=== PATIENT | male | born 1970 | race African-American/Black ===

== ENCOUNTER 2016-10-17 10:58 | Inpatient (IN) | payer OTHER ==
[2016-10-17 14:47] VITALS: BMI 29.0
--- NOTE | 2016-10-17 17:23 | HP ---
Admission [facility] Chief Complaint: I wanted to come in for rehab. Allergies/Adverse Reactions: Allergies Allergy/AdvReac Type Severity Reaction Status Date / Time penicillin G Allergy Severe Rash Verified 10/17/16 17:06 sulfamethoxazole Allergy Rash Verified 10/17/16 17:06 [From Bactrim] trimethoprim [From Bactrim] Allergy Rash Verified 10/17/16 17:06 DAPSONE Allergy Severe Rash Uncoded 10/17/16 17:06 History of Present Illness: pt is a 46yr old male with a history of klonipin dependence however, pt toxicology is negative. pt was made aware that he will not be receiving any benzodiazapine while on the unit and pt is in agreement. Exam Limitations: No Limitations - Ebola screening Have you traveled outside of the country in the last 21 days: No Have you had contact with anyone from an Ebola affected area: No Have you been sick,other than usual withdrawal symptoms: No Do you have a fever: No - Review of Systems Constitutional: No Symptoms Reported EENT: reports: No Symptoms Reported Respiratory: reports: No Symptoms reported Cardiac: reports: No Symptoms Reported GI: reports: Constipated : reports: No Symptoms Reported Musculoskeletal: reports: Back Pain Integumentary: reports: [place] Neuro: reports: No Symptoms reported Endocrine: reports: No Symptoms Reported Hematology: reports: No Symptoms Reported Psychiatric: reports: Judgement Intact, Mood/Affect Appropiate, Orientated x3, Anxious Other Systems: Reviewed and Negative Patient History - Patient Medical History Hx Anemia: No Hx Asthma: Yes Hx Chronic Obstructive Pulmonary Disease (COPD): No Hx Cancer: No Hx Cardiac Disorders: No Hx Congestive Heart Failure: No Hx Hypertension: No Hx Hypercholesterolemia: No Hx Pacemaker: No HX Cerebrovascular Accident: No Hx Seizures: No Hx Dementia: No Hx Diabetes: No Hx Gastrointestinal Disorders: No Hx Liver Disease: No Hx Genitourinary Disorders: No Hx Sexually Transmitted Disorders: No Hx Renal Disease (ESRD): No Hx Thyroid Disease: No Hx Human Immunodeficiency Virus (HIV): Yes (diagnosed 1998 not currently taking any medication) Hx Hepatitis C: No (denies) Hx Depression: No Hx Suicide Attempt: No (denies) Hx Bipolar Disorder: No Hx Schizophrenia: No - Patient Surgical History Past Surgical History: No - PPD History Previous Implant?: Yes Documented Results: Negative w/o proof PPD to be Administered?: Yes - Reproductive History Patient is a Female of Child Bearing Age (11 -55 yrs old): No - Smoking Cessation Smoking history: Current every day smoker Have you smoked in the past 12 months: Yes Aproximately how many cigarettes per day: 10 Hx Chewing Tobacco Use: No Initiated information on smoking cessation: Yes 'Breaking Loose' booklet given: 10/17/16 - Substance & Tx. History Hx Alcohol Use: No Hx Substance Use: No Hx Substance Use Treatment: No Family Disease History - Family Disease History Family History: Denies Admission Physical Exam [facility] - Vital Signs Vital Signs: Vital Signs - 24 hr 10/17/16 14:45 Temperature 98.6 F Pulse Rate 79 Respiratory 20 Rate Blood Pressure 137/74 - Physical General Appearance: Yes: Appropriately Dressed, Moderate Distress HEENTM: Yes: Hearing grossly Normal Respiratory: Yes: Lungs Clear, Normal Breath Sounds, No Respiratory Distress Neck: Yes: No masses,lesions,Nodules Breast: Yes: Within Normal Limits Cardiology: Yes: Regular Rhythm, Regular Rate, S1, S2 Abdominal: Yes: Within Normal Limits, Normal Bowel Sounds Genitourinary: Yes: Within Normal Limits Back: Yes: Normal Inspection Musculoskeletal: Yes: full range of Motion Extremities: Yes: Normal Capillary Refill Neurological: Yes: Fully Oriented, Alert, Normal Response Integumentary: Yes: Normal Color Lymphatic: Yes: Within Normal Limits - Diagnostic (1) Klonopin use disorder, mild, abuse Current Visit: No Status: Chronic (2) Methadone maintenance therapy patient Current Visit: Yes Status: Chronic (3) Asthma with COPD Current Visit: Yes Status: Chronic (4) HIV disease Current Visit: Yes Status: Chronic Comment: not taking any medication (5) Nicotine dependence Current Visit: Yes Status: Chronic Qualifiers: Nicotine product type: cigarettes Substance use status: uncomplicated Qualified Code(s): F17.210 - Nicotine dependence, cigarettes, uncomplicated Cleared for Admission [facility] - Detox or Rehab [facility] Level of Care: Medically Managed Claeared for Rehab Admission: Yes [facility] Breath Alcohol Content Breath Alcohol Content: 0 Urine Drug Screen - Results Drug Screen Negative: No Urine Drug Screen Results: MTD-Methadone
[2016-10-17] MEDS ORDERED: MAGNESIUM HYDROX 2400MG/30ML ORAL SUSPENSION 30 ML CUP PO PRN (17:36)
[2016-10-17] MEDS ORDERED: MENTHOL/PHENOL 1 EACH UD MM PRN (17:36)
[2016-10-17] MEDS ORDERED: P-EPHED 60MG/TRIPROLIDI 2.5MG TABLET PO PRN (17:36)
[2016-10-17] MEDS ORDERED: ACETAMINOPHEN 325 MG TABLET (FP) PO PRN (17:36)
[2016-10-17] MEDS ORDERED: IBUPROFEN 400 MG TABLET (FP) PO PRN (17:36)
[2016-10-17] MEDS ORDERED: LOPERAMIDE HCL 2 MG CAPSULE PO PRN (17:36)
[2016-10-17] MEDS ORDERED: guaiFENesin/D-METHORPHAN HB 10 ML UNIT-DOSE CUPS PO PRN (17:36)
[2016-10-17] MEDS ORDERED: MAG HYDROX/AL HYDROX/SIMETH 30 ML UNIT-DOSE CUP PO PRN (17:36)
[2016-10-17] MEDS ORDERED: MAGNESIUM CITRATE 300 ML BOTTLE PO PRN (17:36)
[2016-10-17] MEDS ORDERED: hydrOXYzine PAMOATE 50 MG CAPSULE (FP) PO PRN (17:36)
[2016-10-17] MEDS ORDERED: ALBUTEROL SO4 6.7 GM HFA INHALER IH PRN (17:37)
[2016-10-17] MEDS: LIDOCAINE PATCH REMOVAL MC SCH (21:38)
[2016-10-17] MEDS: THIAMINE HCL 100 MG TABLET (FP) PO SCH (22:30)
[2016-10-17] MEDS: BUDESONIDE/FORMETEROL FUMARATE 80/4.5 mcg INHALER IH SCH (22:30)
[2016-10-18] MEDS ORDERED: METHADONE HCL 40 MG DISPERSABLE TABLET PO SCH (07:00)
[2016-10-18] MEDS ORDERED: METHADONE HCL 40 MG DISPERSABLE TABLET ONE (07:12)
[2016-10-18] MEDS ORDERED: METHADONE HCL 10 MG TABLET ONE (07:12)
[2016-10-18] MEDS: METHADONE 80 MG, METHADONE 10 MG PO SCH (07:16)
[2016-10-18 10:35] LABS: MCH 31.6 pg (25.7-33.7); MCHC 34.2 g/dl (32.0-35.9); MEAN CELL VOLUME 92.3 fl (80-96); MEAN PLT VOLUME 9.1 fl (7.5-11.1); PLATELET COUNT 242 K/MM3 (134-434); RDW 15.3 % (11.9-15.9); WHITE BLOOD COUNT 3.9 K/mm3 (4.0-10.0)
[2016-10-18] MEDS: PRENATAL VITAMINS W/ FOLIC ACID TABLET (FP) PO SCH (10:54)
[2016-10-18] MEDS: CHOLECALCIFEROL PO SCH (10:54)
[2016-10-18] MEDS: [UNRECOGNIZED DRUG - OTHER] PO SCH (10:54)
[2016-10-18] MEDS: NICOTINE 21 MG/24 HOURS TOPICAL PATCH TD SCH (10:55)
[2016-10-18] MEDS: LIDOCAINE 5% TOPICAL PATCH TP SCH (10:56)
[2016-10-18] MEDS: NICOTINE POLACRILEX 4 MG GUM BC PRN (10:58)
[2016-10-18] MEDS: BUDESONIDE/FORMETEROL FUMARATE 80/4.5 mcg INHALER IH SCH ×2 (10:58→21:12)
[2016-10-18 11:15] LABS: ALBUMIN 3.7 g/dl (3.4-5.0); ALK PHOS 122 U/L (45-117); ANION GAP 8 (8-16); BILIRUBIN,TOTAL 0.4 mg/dL (0.2-1.0); CALCIUM 8.9 mg/dL (8.5-10.1); CO2 27 mmol/L (21-32); COCKROFT - GAULT 105.46; GLUCOSE,RANDOM 88 mg/dL (74-106); SGOT/AST 21 U/L (15-37); SGPT/ALT 25 U/L (12-78); TOT PROT 7.4 g/dl (6.4-8.2)
[2016-10-18] MEDS: THIAMINE HCL 100 MG TABLET (FP) PO SCH (21:11)
[2016-10-18] MEDS: diphenhydrAMINE HCL 50 MG CAPSULE PO PRN (21:11)
[2016-10-18] MEDS: LIDOCAINE PATCH REMOVAL MC SCH (21:11)
[2016-10-19] MEDS ORDERED: METHADONE HCL 10 MG TABLET ONE (03:58)
[2016-10-19] MEDS ORDERED: METHADONE HCL 40 MG DISPERSABLE TABLET ONE (03:59)
[2016-10-19] MEDS: METHADONE 80 MG, METHADONE 10 MG PO SCH (05:57)
[2016-10-19] MEDS: NICOTINE 21 MG/24 HOURS TOPICAL PATCH TD SCH (09:29)
[2016-10-19] MEDS: PRENATAL VITAMINS W/ FOLIC ACID TABLET (FP) PO SCH (09:29)
[2016-10-19] MEDS: CHOLECALCIFEROL PO SCH (09:29)
[2016-10-19] MEDS: [UNRECOGNIZED DRUG - OTHER] PO SCH (09:29)
[2016-10-19] MEDS: LIDOCAINE 5% TOPICAL PATCH TP SCH (09:29)
[2016-10-19] MEDS: NICOTINE POLACRILEX 4 MG GUM BC PRN (09:30)
[2016-10-19] MEDS: BUDESONIDE/FORMETEROL FUMARATE 80/4.5 mcg INHALER IH SCH ×2 (10:09→21:44)
[2016-10-19] MEDS: LIDOCAINE PATCH REMOVAL MC SCH (21:43)
[2016-10-19] MEDS: diphenhydrAMINE HCL 50 MG CAPSULE PO PRN (21:43)
[2016-10-19] MEDS: THIAMINE HCL 100 MG TABLET (FP) PO SCH (21:43)
[2016-10-20] MEDS ORDERED: METHADONE HCL 10 MG TABLET ONE (03:58)
[2016-10-20] MEDS ORDERED: METHADONE HCL 40 MG DISPERSABLE TABLET ONE (03:59)
[2016-10-20] MEDS: METHADONE 80 MG, METHADONE 10 MG PO SCH (05:56)
[2016-10-20] MEDS ORDERED: PT OWN MED DRAWER 7, Y5N ONE (08:45)
[2016-10-20] MEDS: [UNRECOGNIZED DRUG - OTHER] PO SCH (10:07)
[2016-10-20] MEDS: PRENATAL VITAMINS W/ FOLIC ACID TABLET (FP) PO SCH (10:07)
[2016-10-20] MEDS: CHOLECALCIFEROL PO SCH (10:07)
[2016-10-20] MEDS: NICOTINE 21 MG/24 HOURS TOPICAL PATCH TD SCH (10:08)
[2016-10-20] MEDS: LIDOCAINE 5% TOPICAL PATCH TP SCH (10:08)
[2016-10-20] MEDS: BUDESONIDE/FORMETEROL FUMARATE 80/4.5 mcg INHALER IH SCH ×2 (10:09→21:20)
--- NOTE | 2016-10-20 11:36 | EKG ---
Test Reason : Blood Pressure : / mmHG Vent. Rate : 058 BPM Atrial Rate : 058 BPM P-R Int : 160 ms QRS Dur : 070 ms QT Int : 422 ms P-R-T Axes : 067 053 051 degrees QTc Int : 414 ms SINUS BRADYCARDIA OTHERWISE NORMAL ECG NO PREVIOUS ECGS AVAILABLE Confirmed by KATYA WINTERS MD ([id number]) on 10/20/2016 11:36:15 AM Referred By: Parag Nolasco Confirmed By:KATYA WINTERS MD
--- NOTE | 2016-10-20 13:24 | HP ---
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 , unemployed, on SSI, living alone with psychiatric hospitalization history, sent by himself due to Benzodoiazepins and Nicotine abuse, Opioids dependency Medical History: Patient ambulayes with cane due to chronic Osteoporosos, reports HIV, COPD history Psychiatric History: Patient denies past psychiatric history, reportsa unclear psychiatric admission on about 10 years ago, reports no medications taking prior mto admission Physical/Sexual Abuse/Trauma History: Denies Vital Signs: Vital Signs - 24 hr 10/20/16 10/20/16 00:30 06:59 Temperature 98.5 F Pulse Rate 64 Respiratory 18 18 Rate Blood Pressure 127/76 Allergies/Adverse Reactions: Allergies Allergy/AdvReac Type Severity Reaction Status Date / Time penicillin G Allergy Severe Rash Verified 10/17/16 17:06 sulfamethoxazole Allergy Rash Verified 10/17/16 17:06 [From Bactrim] trimethoprim [From Bactrim] Allergy Rash Verified 10/17/16 17:06 DAPSONE Allergy Severe Rash Uncoded 10/17/16 17:06 Concur with the findings of this exam: Yes - Substance Abuse/Tx History Hx Alcohol Use: No Hx Substance Use: Yes (Cannabis, Nicotine, Benzodiazepins) Substance Use Type: Opiates Hx Substance Use Treatment: Yes - Admission Criteria Previous failed treatment: Yes Poor recovery environment: No Lacks judgement: No Mental Status Exam - Mental Status Exam Alert and Oriented to: Person Cognitive Function: Fair Patient Appearance: Well Groomed Mood: Sad Affect: Mood Congruent Patient Behavior: Cooperative Speech Pattern: Delayed Voice Loudness: Mildly Soft/Quiet Thought Process: Goal Oriented Thought Disorder: Being Controlled Hallucinations: Denies Suicidal Ideation: Denies Homicidal Ideation: Denies Sleep: Difficulty falling asleep Appetite: Weight loss Muscle strength/Tone: Clonus Gait/Station: Deferred Additional Comments: Observation Psychiatric Findings - Problem List ([place] 1, 2,3) (1) Asthma with COPD Current Visit: Yes Status: Chronic (2) Methadone maintenance therapy patient Current Visit: Yes Status: Chronic (3) Nicotine dependence Current Visit: Yes Status: Chronic Qualifiers: Nicotine product type: cigarettes Substance use status: uncomplicated Qualified Code(s): F17.210 - Nicotine dependence, cigarettes, uncomplicated (4) Klonopin use disorder, mild, abuse Current Visit: No Status: Chronic (5) Drug-induced mood disorder Current Visit: Yes Status: Suspected - Initial Treatment Plan Initial Treatment Plan: Observation
[2016-10-20] MEDS: THIAMINE HCL 100 MG TABLET (FP) PO SCH (21:19)
[2016-10-20] MEDS: diphenhydrAMINE HCL 50 MG CAPSULE PO PRN (21:19)
[2016-10-20] MEDS: LIDOCAINE PATCH REMOVAL MC SCH (21:20)
[2016-10-21] MEDS ORDERED: METHADONE HCL 40 MG DISPERSABLE TABLET ONE (04:30)
[2016-10-21] MEDS ORDERED: METHADONE HCL 10 MG TABLET ONE (04:30)
[2016-10-21] MEDS: METHADONE 80 MG, METHADONE 10 MG PO SCH (06:05)
[2016-10-21] MEDS ORDERED: PT OWN MED DRAWER 7, Y5N ONE ×2 (08:50→21:34)
[2016-10-21] MEDS: PRENATAL VITAMINS W/ FOLIC ACID TABLET (FP) PO SCH (09:38)
[2016-10-21] MEDS: LIDOCAINE 5% TOPICAL PATCH TP SCH (09:39)
[2016-10-21] MEDS: NICOTINE 21 MG/24 HOURS TOPICAL PATCH TD SCH (09:40)
[2016-10-21] MEDS: [UNRECOGNIZED DRUG - OTHER] PO SCH (09:40)
[2016-10-21] MEDS: CHOLECALCIFEROL PO SCH (09:40)
[2016-10-21] MEDS: BUDESONIDE/FORMETEROL FUMARATE 80/4.5 mcg INHALER IH SCH ×2 (09:41→21:34)
[2016-10-21 18:40] LABS: URINE APPEARANCE CLEAR; URINE BILIRUBIN NEGATIVE (NEGATIVE); URINE BLOOD NEGATIVE (NEGATIVE); URINE COLOR YELLOW; URINE GLUCOSE (UA) NEGATIVE (NEGATIVE); URINE KETONE NEGATIVE (NEGATIVE); URINE LEUK ESTERASE NEGATIVE (NEGATIVE); URINE NITRITE NEGATIVE (NEGATIVE); URINE PROTEIN 1+ (NEGATIVE); URINE UROBILINOGEN NEGATIVE E.U./dl (0.2-1.0)
[2016-10-21 19:28] LABS: URINE MUCUS RARE; URINE RBC <1 /hpf (0-3); URINE WBC <1 /hpf (3-5)
[2016-10-21] MEDS: diphenhydrAMINE HCL 50 MG CAPSULE PO PRN (21:34)
[2016-10-21] MEDS: THIAMINE HCL 100 MG TABLET (FP) PO SCH (21:34)
[2016-10-21] MEDS: LIDOCAINE PATCH REMOVAL MC SCH (21:35)
[2016-10-22] MEDS ORDERED: METHADONE HCL 10 MG TABLET ONE (04:17)
[2016-10-22] MEDS ORDERED: METHADONE HCL 40 MG DISPERSABLE TABLET ONE (04:17)
[2016-10-22] MEDS: METHADONE 80 MG, METHADONE 10 MG PO SCH (06:02)
[2016-10-22] MEDS ORDERED: PT OWN MED DRAWER 7, Y5N ONE (09:16)
[2016-10-22] MEDS: NICOTINE 21 MG/24 HOURS TOPICAL PATCH TD SCH (10:09)
[2016-10-22] MEDS: PRENATAL VITAMINS W/ FOLIC ACID TABLET (FP) PO SCH (10:09)
[2016-10-22] MEDS: [UNRECOGNIZED DRUG - OTHER] PO SCH (10:10)
[2016-10-22] MEDS: CHOLECALCIFEROL PO SCH (10:10)
[2016-10-22] MEDS: LIDOCAINE 5% TOPICAL PATCH TP SCH (10:10)
[2016-10-22] MEDS: BUDESONIDE/FORMETEROL FUMARATE 80/4.5 mcg INHALER IH SCH ×2 (10:12→21:36)
[2016-10-22] MEDS: LIDOCAINE PATCH REMOVAL MC SCH (21:35)
[2016-10-22] MEDS: diphenhydrAMINE HCL 50 MG CAPSULE PO PRN (21:35)
[2016-10-22] MEDS: THIAMINE HCL 100 MG TABLET (FP) PO SCH (21:35)
[2016-10-23] MEDS ORDERED: METHADONE HCL 10 MG TABLET ONE (04:07)
[2016-10-23] MEDS ORDERED: METHADONE HCL 40 MG DISPERSABLE TABLET ONE (04:07)
[2016-10-23] MEDS: METHADONE 80 MG, METHADONE 10 MG PO SCH (05:56)
[2016-10-23] MEDS ORDERED: PT OWN MED DRAWER 7, Y5N ONE (08:45)
[2016-10-23] MEDS: [UNRECOGNIZED DRUG - OTHER] PO SCH (10:17)
[2016-10-23] MEDS: CHOLECALCIFEROL PO SCH (10:17)
[2016-10-23] MEDS: PRENATAL VITAMINS W/ FOLIC ACID TABLET (FP) PO SCH (10:17)
[2016-10-23] MEDS: LIDOCAINE 5% TOPICAL PATCH TP SCH (10:18)
[2016-10-23] MEDS: NICOTINE 21 MG/24 HOURS TOPICAL PATCH TD SCH (10:19)
[2016-10-23] MEDS: BUDESONIDE/FORMETEROL FUMARATE 80/4.5 mcg INHALER IH SCH ×2 (10:20→21:33)
--- NOTE | 2016-10-23 14:14 | PN ---
Psychiatric Progress Note Vital Signs: Vital Signs Period Temp Pulse Resp BP Sys/Palma Pulse Ox Last 24 Hr 98.6 F 81 18-18 131/75 Date of Session: 10/23/16 Chief Complaint:: discharge visit HPI: Patient is addressing benzo abuse, nicotine dependence comorbid drug induced mood disorder. ROS: COPD, AIDS medically managed. Current Medications: Active Medications Generic Name Dose Route Start Last Admin Trade Name Freq PRN Reason Stop Dose Admin Acetaminophen 650 mg 10/17/16 17:36 10/17/16 19:41 Tylenol - PO 650 mg Q4H PRN Administration PAIN Al Hydroxide/Mg Hydroxide 30 ml 10/17/16 17:36 Mylanta Oral Suspension - PO Q6H PRN DYSPEPSIA Albuterol Sulfate 2 puff 10/17/16 17:37 Ventolin Hfa Inhaler - IH Q4H PRN ASTHMA Budesonide/Formoterol Fumarate 2 puff 10/17/16 22:00 10/23/16 10:20 Symbicort 80/4.5mcg - IH Not Given BID REZA Diphenhydramine HCl 50 mg 10/17/16 17:36 10/22/16 21:35 Benadryl - PO 50 mg HSMR1 PRN Administration INSOMNIA Eucalyptus/Menthol/Phenol/Sorbitol 1 each 10/17/16 17:36 Cepastat Lozenge - MM Q4H PRN SORE THROAT Guaifenesin 10 ml 10/17/16 17:36 Robitussin Dm - PO Q6H PRN COUGH Hydroxyzine Pamoate 50 mg 10/17/16 17:36 Vistaril - PO Q4H PRN AGITATION Ibuprofen 400 mg 10/17/16 17:36 Motrin - PO Q6H PRN SEVERE PAIN Lidocaine 2 patch 10/18/16 10:00 10/23/16 10:18 Lidoderm Patch - TP 2 patch DAILY REZA Administration Loperamide HCl 4 mg 10/17/16 17:36 Imodium - PO Q6H PRN DIARRHEA Magnesium Citrate 300 ml 10/17/16 17:36 Citroma - PO Q48H PRN CONSTIPATION Magnesium Hydroxide 30 ml 10/17/16 17:36 Milk Of Magnesia - PO DAILY PRN CONSTIPATION Methadone HCl 80 mg/ Methadone 90 mg 10/24/16 06:00 HCl 10 mg PO 10/30/16 05:59 DAILY@0600 REZA Miscellaneous 1 each 10/17/16 22:00 10/22/16 21:35 Lidoderm Patch Removal MC 1 each DAILY@2200 REZA Administration Nicotine 21 mg 10/18/16 10:00 10/23/16 10:19 Nicoderm Patch - TD 21 mg DAILY REZA Administration Nicotine Polacrilex 4 mg 10/17/16 17:36 10/19/16 09:30 Nicorette Gum - BC 4 mg Q2H PRN Administration NICOTINE REPLACEMENT RX Non-Formulary Medication 1,000 unit 10/18/16 10:00 10/23/16 10:17 Cholecalciferol (Vitamin D3) [Vitamin D -] PO 1,000 unit DAILY REZA Administration Multivit/Folic Acid/Iron 1 tab 10/18/16 10:00 10/23/16 10:17 Vitamins (Sjr) - PO 1 tab DAILY REZA Administration Pseudoephedrine/Triprolidine 1 combo 10/17/16 17:36 Actifed - PO TID PRN NASAL CONGESTION Thiamine HCl 100 mg 10/17/16 22:00 10/22/16 21:35 Vitamin B1 - PO 100 mg HS REZA Administration Current Side Effect: No Lab tests ordered: No Lab tests reviewed: Yes Provider note:: Patient will complete his treatment on 10/24/16 and meet his goals , will continue to address his issues at his [facility] program. Patient focused on insights he gained through this treatment and ways to utilize supports to prevent relapses. Patient is stable for discharge on 10/24/16. MSE complted. Total face to face time:: 15 Mental Status Exam - Mental Status Exam Alert and Oriented to: Time, Place, Person Cognitive Function: Grossly Intact Patient Appearance: Well Groomed Affect: Appropriate, Mood Congruent Patient Behavior: Cooperative Speech Pattern: Clear, Appropriate Voice Loudness: Normal Thought Process: Intact, Goal Oriented Thought Disorder: Not Present Hallucinations: Denies Suicidal Ideation: Denies Homicidal Ideation: Denies Insight/Judgement: Fair Sleep: Fair Appetite: Fair Muscle strength/Tone: Normal Gait/Station: Normal Psychiatric Treatment Plan - Problem List (1) Methadone maintenance therapy patient Current Visit: Yes (2) Nicotine dependence Current Visit: Yes Qualifiers: Nicotine product type: cigarettes Substance use status: uncomplicated Qualified Code(s): F17.210 - Nicotine dependence, cigarettes, uncomplicated (3) Drug-induced mood disorder Current Visit: Yes (4) Klonopin use disorder, mild, abuse Current Visit: No
[2016-10-23] MEDS: diphenhydrAMINE HCL 50 MG CAPSULE PO PRN (21:32)
[2016-10-23] MEDS: THIAMINE HCL 100 MG TABLET (FP) PO SCH (21:32)
[2016-10-23] MEDS: LIDOCAINE PATCH REMOVAL MC SCH (21:33)
[2016-10-24] MEDS ORDERED: METHADONE HCL 40 MG DISPERSABLE TABLET ONE (04:52)
[2016-10-24] MEDS ORDERED: METHADONE HCL 10 MG TABLET ONE (04:52)
[2016-10-24] MEDS ORDERED: METHADONE 80 MG, METHADONE 10 MG PO SCH (06:00)
[2016-10-24 07:31] VITALS: BP 132/75; PULSE 90; TEMP 99.1
[2016-10-24] MEDS: LIDOCAINE 5% TOPICAL PATCH TP SCH (09:26)
[2016-10-24] MEDS: PRENATAL VITAMINS W/ FOLIC ACID TABLET (FP) PO SCH (09:26)
[2016-10-24] MEDS: [UNRECOGNIZED DRUG - OTHER] PO SCH (09:28)
[2016-10-24] MEDS: CHOLECALCIFEROL PO SCH (09:28)
== END 2016-10-24 09:40 | disposition home or self-care (01) | DRG 772 ==
LOC: YASAS 10:58 → Y3W 18:07
PROVIDERS: ADMIT Psychiatry & Neurology Psychiatry; ATTEND Psychiatry & Neurology Psychiatry
PROC: HZ42ZZZ Group Counseling for Substance Abuse Treatment, Cognitive-Behavioral (ICD-10-PCS; principal; 2016-10-24)
DX: F11.20 Opioid dependence, uncomplicated (principal); F17.210 Nicotine dependence, cigarettes, uncomplicated; F13.10 Sedative, hypnotic or anxiolytic abuse, uncomplicated; F19.24 Other psychoactive substance dependence with psychoactive substance-induced mood disorder; J44.9 Chronic obstructive pulmonary disease, unspecified; J45.909 Unspecified asthma, uncomplicated; Z21 Asymptomatic human immunodeficiency virus [HIV] infection status
CPT/HCPCS: 36415; 80053; 81003; 81015; 85027; 86593; 93005; 93010

== ENCOUNTER 2020-07-20 12:31 | Inpatient (IN) | payer OTHER ==
[2020-07-20 16:29] VITALS: BMI 29.8
[2020-07-20] MEDS ORDERED: MAG HYDROX/AL HYDROX/SIMETH 30 ML UNIT-DOSE CUP PO PRN (22:36)
[2020-07-20] MEDS ORDERED: guaiFENesin 200 MG/10 ML 10 ML UNIT-DOSE CUPS PO PRN (22:36)
[2020-07-20] MEDS ORDERED: MAGNESIUM HYDROX 2400MG/30ML ORAL SUSPENSION 30 ML CUP PO PRN (22:36)
[2020-07-20] MEDS ORDERED: ACETAMINOPHEN 325 MG TABLET (FP) PO PRN (22:36)
[2020-07-20] MEDS ORDERED: P-EPHED 60MG/TRIPROLIDI 2.5MG TABLET PO PRN (22:36)
[2020-07-20] MEDS ORDERED: LOPERAMIDE HCL 2 MG CAPSULE PO PRN (22:36)
[2020-07-20] MEDS ORDERED: MAGNESIUM CITRATE 300 ML BOTTLE PO PRN (22:36)
[2020-07-20] MEDS ORDERED: NICOTINE POLACRILEX 2 MG GUM BC PRN (22:36)
[2020-07-20] MEDS ORDERED: IBUPROFEN 400 MG TABLET (FP) PO PRN (22:36)
[2020-07-20] MEDS ORDERED: ALBUTEROL SO4 HFA INHALER IH PRN (23:00)
[2020-07-20] MEDS ORDERED: IPRATROPIUM BR 0.02% 0.5 MG/2.5 ML VIAL.NEB. NEB PRN (23:17)
[2020-07-21] MEDS ORDERED: TUBERCULIN PPD 5 TU/0.1ML VIAL ID ONE (00:04)
[2020-07-21] MEDS ORDERED: PT OWN MED DRAWER 7, Y5N ONE (09:28)
[2020-07-21 11:22] LABS: HEMOGLOBIN 13.7 GM/dL (11.7-16.9); MCH 30.8 pg (25.7-33.7); MCHC 32.7 g/dl (32.0-35.9); MEAN CELL VOLUME 94.1 fl (80-96); MEAN PLT VOLUME 8.6 fl (7.5-11.1); PLATELET COUNT 267 K/MM3 (134-434); RBC 4.47 M/mm3 (4.00-5.60); RDW 14.2 % (11.9-15.9)
[2020-07-21 11:50] LABS: POTASSIUM 4.6 mmol/L (3.5-5.1)
[2020-07-21 11:52] LABS: ALBUMIN 3.1 g/dl (3.4-5.0); BLOOD UREA NITROGEN 13.4 mg/dL (7-18); CALCIUM 9.2 mg/dL (8.5-10.1)
[2020-07-21 11:57] LABS: BILIRUBIN,TOTAL 0.3 mg/dL (0.2-1); TOT PROT 6.3 g/dl (6.4-8.2)
[2020-07-21] MEDS ORDERED: METHADONE HCL 10 MG TABLET PO ONE (12:45)
[2020-07-21] MEDS ORDERED: METHADONE 120 MG, METHADONE 10 MG, METHADONE 5 MG PO ONE ×2 (14:00→14:15)
[2020-07-21] MEDS ORDERED: METHADONE HCL 5 MG TABLET ONE (14:15)
[2020-07-21] MEDS ORDERED: METHADONE HCL 40 MG DISPERSABLE TABLET ONE (14:16)
[2020-07-21] MEDS ORDERED: METHADONE HCL 10 MG TABLET ONE (14:16)
[2020-07-21 17:20] LABS: EPI CELLS 5 /uL (0-25.1); HYALINE CASTS 1 /uL (0-3.1); URINE APPEARANCE TURBID; URINE BACTERIA 38 /uL (0-1359); URINE BILIRUBIN NEGATIVE (NEGATIVE); URINE COLOR YELLOW; URINE GLUCOSE (UA) NEGATIVE (NEGATIVE); URINE KETONE NEGATIVE (NEGATIVE); URINE LEUK ESTERASE NEGATIVE (NEGATIVE); URINE NITRITE NEGATIVE (NEGATIVE); URINE PROTEIN 1+ (NEGATIVE); URINE RBC 14 /uL (0-23.9); URINE WBC 11 /uL (0-25.8)
[2020-07-21] MEDS: LEVETIRACETAM PO SCH (21:12)
[2020-07-21] MEDS: BUDESONIDE/FORMETEROL FUMARATE 160/4.5 mcg INHALER IH SCH (21:13)
[2020-07-21] MEDS: THIAMINE HCL 100 MG TABLET (FP) PO SCH (21:13)
[2020-07-21] MEDS: MELATONIN 5 MG TABLETS PO PRN (21:14)
[2020-07-21] MEDS: ATORVASTATIN CALCIUM PO SCH (22:33)
[2020-07-22] MEDS ORDERED: METHADONE HCL 10 MG TABLET PO ONE (06:00)
[2020-07-22] MEDS ORDERED: METHADONE 120 MG, METHADONE 10 MG, METHADONE 5 MG PO ONE (06:00)
[2020-07-22] MEDS ORDERED: METHADONE HCL 10 MG TABLET ONE (06:16)
[2020-07-22] MEDS ORDERED: METHADONE HCL 40 MG DISPERSABLE TABLET ONE (06:16)
[2020-07-22] MEDS ORDERED: METHADONE HCL 5 MG TABLET ONE (06:16)
[2020-07-22] MEDS: LEVETIRACETAM PO SCH ×2 (09:53→21:07)
[2020-07-22] MEDS: BUDESONIDE/FORMETEROL FUMARATE 160/4.5 mcg INHALER IH SCH ×3 (09:54→21:05)
[2020-07-22] MEDS: ASPIRIN PO SCH ×2 (09:56→09:57)
[2020-07-22] MEDS: PATIENT'S OWN MEDICATION (NON-FORMULARY) (Bictegrav/Emtricit/Tenofov Ala 1 EACH Tablet) PO SCH ×2 (09:56→09:57)
[2020-07-22] MEDS: CHOLECALCIFEROL U PO SCH ×2 (09:56→09:57)
[2020-07-22] MEDS: ATOVAQUONE 750 MG/5 ML (UNIT-DOSE PACKAGING) PO SCH ×2 (09:56→09:57)
[2020-07-22] MEDS: PRENATAL VITAMINS W/ FOLIC ACID TABLET (FP) PO SCH ×2 (09:57)
[2020-07-22] MEDS: NICOTINE 7 MG/24 HOURS TOPICAL PATCH TD SCH (09:57)
[2020-07-22] MEDS: THIAMINE HCL 100 MG TABLET (FP) PO SCH (21:05)
[2020-07-22] MEDS: ATORVASTATIN CALCIUM PO SCH (21:06)
[2020-07-22] MEDS: MELATONIN 5 MG TABLETS PO PRN (21:06)
[2020-07-23] MEDS ORDERED: PT OWN MED DRAWER 7, Y5N ONE (03:12)
[2020-07-23] MEDS ORDERED: METHADONE HCL 10 MG TABLET PO ONE (10:07)
[2020-07-23] MEDS: NICOTINE 7 MG/24 HOURS TOPICAL PATCH TD SCH (10:11)
[2020-07-23] MEDS: ASPIRIN PO SCH (10:11)
[2020-07-23] MEDS: PATIENT'S OWN MEDICATION (NON-FORMULARY) (Bictegrav/Emtricit/Tenofov Ala 1 EACH Tablet) PO SCH (10:11)
[2020-07-23] MEDS: CHOLECALCIFEROL U PO SCH (10:11)
[2020-07-23] MEDS: LEVETIRACETAM PO SCH ×2 (10:11→21:44)
[2020-07-23] MEDS: PRENATAL VITAMINS W/ FOLIC ACID TABLET (FP) PO SCH (10:11)
[2020-07-23] MEDS: BUDESONIDE/FORMETEROL FUMARATE 160/4.5 mcg INHALER IH SCH ×2 (10:12→21:45)
[2020-07-23] MEDS: ATOVAQUONE 750 MG/5 ML (UNIT-DOSE PACKAGING) PO SCH (10:15)
[2020-07-23] MEDS ORDERED: METHADONE 120 MG, METHADONE 10 MG, METHADONE 5 MG PO ONE (10:30)
[2020-07-23] MEDS ORDERED: METHADONE HCL 5 MG TABLET ONE (10:36)
[2020-07-23] MEDS ORDERED: METHADONE HCL 40 MG DISPERSABLE TABLET ONE (10:37)
[2020-07-23] MEDS ORDERED: METHADONE HCL 10 MG TABLET ONE (10:37)
[2020-07-23] MEDS: MINERAL OIL/PETROLAT/WATER TOPICAL CREAM 113 GM JAR TP SCH (19:03)
[2020-07-23] MEDS: MELATONIN 5 MG TABLETS PO PRN (21:44)
[2020-07-23] MEDS: ATORVASTATIN CALCIUM PO SCH (21:44)
[2020-07-23] MEDS: THIAMINE HCL 100 MG TABLET (FP) PO SCH (21:44)
[2020-07-24] MEDS ORDERED: METHADONE HCL 40 MG DISPERSABLE TABLET ONE (04:00)
[2020-07-24] MEDS ORDERED: METHADONE HCL 5 MG TABLET ONE (04:00)
[2020-07-24] MEDS ORDERED: METHADONE HCL 10 MG TABLET ONE (04:00)
[2020-07-24] MEDS ORDERED: METHADONE HCL 10 MG TABLET PO SCH (06:00)
[2020-07-24] MEDS: METHADONE 120 MG, METHADONE 10 MG, METHADONE 5 MG PO SCH (06:04)
[2020-07-24] MEDS: BUDESONIDE/FORMETEROL FUMARATE 160/4.5 mcg INHALER IH SCH ×2 (10:13→21:18)
[2020-07-24] MEDS: ASPIRIN PO SCH (10:14)
[2020-07-24] MEDS: PATIENT'S OWN MEDICATION (NON-FORMULARY) (Bictegrav/Emtricit/Tenofov Ala 1 EACH Tablet) PO SCH (10:14)
[2020-07-24] MEDS: MINERAL OIL/PETROLAT/WATER TOPICAL CREAM 113 GM JAR TP SCH (10:14)
[2020-07-24] MEDS: PRENATAL VITAMINS W/ FOLIC ACID TABLET (FP) PO SCH (10:14)
[2020-07-24] MEDS: ATOVAQUONE 750 MG/5 ML (UNIT-DOSE PACKAGING) PO SCH (10:14)
[2020-07-24] MEDS: CHOLECALCIFEROL U PO SCH (10:15)
[2020-07-24] MEDS: LEVETIRACETAM PO SCH ×2 (10:15→21:20)
[2020-07-24] MEDS: NICOTINE 7 MG/24 HOURS TOPICAL PATCH TD SCH (10:18)
[2020-07-24] MEDS: MELATONIN 5 MG TABLETS PO PRN (21:18)
[2020-07-24] MEDS: THIAMINE HCL 100 MG TABLET (FP) PO SCH (21:18)
[2020-07-24] MEDS: ATORVASTATIN CALCIUM PO SCH (21:19)
[2020-07-25] MEDS ORDERED: METHADONE HCL 40 MG DISPERSABLE TABLET ONE (03:50)
[2020-07-25] MEDS ORDERED: METHADONE HCL 5 MG TABLET ONE (03:50)
[2020-07-25] MEDS ORDERED: METHADONE HCL 10 MG TABLET ONE (03:50)
[2020-07-25] MEDS: METHADONE 120 MG, METHADONE 10 MG, METHADONE 5 MG PO SCH (06:00)
[2020-07-25] MEDS: PATIENT'S OWN MEDICATION (NON-FORMULARY) (Bictegrav/Emtricit/Tenofov Ala 1 EACH Tablet) PO SCH (10:24)
[2020-07-25] MEDS: ASPIRIN PO SCH (10:24)
[2020-07-25] MEDS: MINERAL OIL/PETROLAT/WATER TOPICAL CREAM 113 GM JAR TP SCH (10:25)
[2020-07-25] MEDS: PRENATAL VITAMINS W/ FOLIC ACID TABLET (FP) PO SCH (10:25)
[2020-07-25] MEDS: CHOLECALCIFEROL U PO SCH (10:25)
[2020-07-25] MEDS: LEVETIRACETAM PO SCH ×2 (10:25→21:43)
[2020-07-25] MEDS: ATOVAQUONE 750 MG/5 ML (UNIT-DOSE PACKAGING) PO SCH (10:25)
[2020-07-25] MEDS: NICOTINE 7 MG/24 HOURS TOPICAL PATCH TD SCH (10:27)
[2020-07-25] MEDS: BUDESONIDE/FORMETEROL FUMARATE 160/4.5 mcg INHALER IH SCH ×2 (10:28→21:42)
[2020-07-25] MEDS: MELATONIN 5 MG TABLETS PO PRN (21:43)
[2020-07-25] MEDS: ATORVASTATIN CALCIUM PO SCH (21:43)
[2020-07-25] MEDS: THIAMINE HCL 100 MG TABLET (FP) PO SCH (21:43)
[2020-07-26] MEDS ORDERED: METHADONE HCL 40 MG DISPERSABLE TABLET ONE (03:24)
[2020-07-26] MEDS ORDERED: METHADONE HCL 5 MG TABLET ONE (03:24)
[2020-07-26] MEDS ORDERED: METHADONE HCL 10 MG TABLET ONE (03:24)
[2020-07-26] MEDS: METHADONE 120 MG, METHADONE 10 MG, METHADONE 5 MG PO SCH (06:29)
[2020-07-26] MEDS: BUDESONIDE/FORMETEROL FUMARATE 160/4.5 mcg INHALER IH SCH ×2 (09:50→21:29)
[2020-07-26] MEDS: ATOVAQUONE 750 MG/5 ML (UNIT-DOSE PACKAGING) PO SCH (09:50)
[2020-07-26] MEDS: PRENATAL VITAMINS W/ FOLIC ACID TABLET (FP) PO SCH (09:50)
[2020-07-26] MEDS: LEVETIRACETAM PO SCH ×2 (09:51→21:29)
[2020-07-26] MEDS: PATIENT'S OWN MEDICATION (NON-FORMULARY) (Bictegrav/Emtricit/Tenofov Ala 1 EACH Tablet) PO SCH (09:51)
[2020-07-26] MEDS: CHOLECALCIFEROL U PO SCH (09:51)
[2020-07-26] MEDS: ASPIRIN PO SCH (09:51)
[2020-07-26] MEDS: MINERAL OIL/PETROLAT/WATER TOPICAL CREAM 113 GM JAR TP SCH (09:52)
[2020-07-26] MEDS: NICOTINE 7 MG/24 HOURS TOPICAL PATCH TD SCH (09:55)
[2020-07-26] MEDS: THIAMINE HCL 100 MG TABLET (FP) PO SCH (21:29)
[2020-07-26] MEDS: hydrOXYzine PAMOATE 25 MG CAPSULE (FP) PO PRN (21:29)
[2020-07-26] MEDS: ATORVASTATIN CALCIUM PO SCH (21:29)
[2020-07-26] MEDS: MELATONIN 5 MG TABLETS PO PRN (21:29)
[2020-07-27] MEDS ORDERED: METHADONE HCL 10 MG TABLET ONE (06:05)
[2020-07-27] MEDS ORDERED: METHADONE HCL 5 MG TABLET ONE (06:05)
[2020-07-27] MEDS ORDERED: METHADONE HCL 40 MG DISPERSABLE TABLET ONE (06:06)
[2020-07-27] MEDS: METHADONE 120 MG, METHADONE 10 MG, METHADONE 5 MG PO SCH (06:06)
[2020-07-27] MEDS: BUDESONIDE/FORMETEROL FUMARATE 160/4.5 mcg INHALER IH SCH ×2 (10:32→22:04)
[2020-07-27] MEDS: PRENATAL VITAMINS W/ FOLIC ACID TABLET (FP) PO SCH (10:32)
[2020-07-27] MEDS: MINERAL OIL/PETROLAT/WATER TOPICAL CREAM 113 GM JAR TP SCH (10:32)
[2020-07-27] MEDS: PATIENT'S OWN MEDICATION (NON-FORMULARY) (Bictegrav/Emtricit/Tenofov Ala 1 EACH Tablet) PO SCH (10:34)
[2020-07-27] MEDS: CHOLECALCIFEROL U PO SCH (10:34)
[2020-07-27] MEDS: LEVETIRACETAM PO SCH ×2 (10:34→22:06)
[2020-07-27] MEDS: ASPIRIN PO SCH (10:35)
[2020-07-27] MEDS: NICOTINE 7 MG/24 HOURS TOPICAL PATCH TD SCH (10:35)
[2020-07-27] MEDS: ATOVAQUONE 750 MG/5 ML (UNIT-DOSE PACKAGING) PO SCH (10:37)
[2020-07-27] MEDS: THIAMINE HCL 100 MG TABLET (FP) PO SCH (22:04)
[2020-07-27] MEDS ORDERED: PT OWN MED DRAWER 7, Y5N ONE (22:05)
[2020-07-27] MEDS: ATORVASTATIN CALCIUM PO SCH (22:06)
[2020-07-27] MEDS: MELATONIN 5 MG TABLETS PO PRN (22:06)
[2020-07-28] MEDS ORDERED: METHADONE HCL 40 MG DISPERSABLE TABLET ONE (04:12)
[2020-07-28] MEDS ORDERED: METHADONE HCL 5 MG TABLET ONE (04:12)
[2020-07-28] MEDS ORDERED: METHADONE HCL 10 MG TABLET ONE (04:12)
[2020-07-28] MEDS: METHADONE 120 MG, METHADONE 10 MG, METHADONE 5 MG PO SCH (05:39)
[2020-07-28] MEDS ORDERED: PT OWN MED DRAWER 7, Y5N ONE ×2 (09:33→10:45)
[2020-07-28] MEDS: MINERAL OIL/PETROLAT/WATER TOPICAL CREAM 113 GM JAR TP SCH (10:42)
[2020-07-28] MEDS: BUDESONIDE/FORMETEROL FUMARATE 160/4.5 mcg INHALER IH SCH ×2 (10:42→21:57)
[2020-07-28] MEDS: ASPIRIN PO SCH (10:42)
[2020-07-28] MEDS: CHOLECALCIFEROL U PO SCH (10:43)
[2020-07-28] MEDS: PATIENT'S OWN MEDICATION (NON-FORMULARY) (Bictegrav/Emtricit/Tenofov Ala 1 EACH Tablet) PO SCH (10:43)
[2020-07-28] MEDS: LEVETIRACETAM PO SCH ×2 (10:43→21:58)
[2020-07-28] MEDS: ATOVAQUONE 750 MG/5 ML (UNIT-DOSE PACKAGING) PO SCH (10:45)
[2020-07-28] MEDS: PRENATAL VITAMINS W/ FOLIC ACID TABLET (FP) PO SCH (10:46)
[2020-07-28] MEDS: NICOTINE 7 MG/24 HOURS TOPICAL PATCH TD SCH (10:47)
[2020-07-28] MEDS: THIAMINE HCL 100 MG TABLET (FP) PO SCH (21:57)
[2020-07-28] MEDS: hydrOXYzine PAMOATE 25 MG CAPSULE (FP) PO PRN (21:57)
[2020-07-28] MEDS: ATORVASTATIN CALCIUM PO SCH (21:58)
[2020-07-28] MEDS: MELATONIN 5 MG TABLETS PO PRN (21:58)
[2020-07-29] MEDS ORDERED: METHADONE HCL 5 MG TABLET ONE (06:27)
[2020-07-29] MEDS ORDERED: METHADONE HCL 40 MG DISPERSABLE TABLET ONE (06:28)
[2020-07-29] MEDS ORDERED: METHADONE HCL 10 MG TABLET ONE (06:28)
[2020-07-29] MEDS: METHADONE 120 MG, METHADONE 10 MG, METHADONE 5 MG PO SCH (06:28)
[2020-07-29] MEDS: BUDESONIDE/FORMETEROL FUMARATE 160/4.5 mcg INHALER IH SCH ×2 (10:19→21:02)
[2020-07-29] MEDS: PATIENT'S OWN MEDICATION (NON-FORMULARY) (Bictegrav/Emtricit/Tenofov Ala 1 EACH Tablet) PO SCH (10:20)
[2020-07-29] MEDS: ASPIRIN PO SCH (10:20)
[2020-07-29] MEDS: CHOLECALCIFEROL U PO SCH (10:21)
[2020-07-29] MEDS: ATOVAQUONE 750 MG/5 ML (UNIT-DOSE PACKAGING) PO SCH (10:21)
[2020-07-29] MEDS: LEVETIRACETAM PO SCH ×2 (10:21→21:03)
[2020-07-29] MEDS: PRENATAL VITAMINS W/ FOLIC ACID TABLET (FP) PO SCH (10:22)
[2020-07-29] MEDS: NICOTINE 7 MG/24 HOURS TOPICAL PATCH TD SCH (10:22)
[2020-07-29] MEDS: MINERAL OIL/PETROLAT/WATER TOPICAL CREAM 113 GM JAR TP SCH (11:47)
[2020-07-29] MEDS: THIAMINE HCL 100 MG TABLET (FP) PO SCH (21:02)
[2020-07-29] MEDS: hydrOXYzine PAMOATE 25 MG CAPSULE (FP) PO PRN (21:02)
[2020-07-29] MEDS: ATORVASTATIN CALCIUM PO SCH (21:03)
[2020-07-29] MEDS: MELATONIN 5 MG TABLETS PO PRN (21:03)
[2020-07-30] MEDS ORDERED: METHADONE HCL 5 MG TABLET ONE (03:30)
[2020-07-30] MEDS ORDERED: METHADONE HCL 10 MG TABLET ONE (03:31)
[2020-07-30] MEDS ORDERED: METHADONE HCL 40 MG DISPERSABLE TABLET ONE (03:31)
[2020-07-30] MEDS: METHADONE 120 MG, METHADONE 10 MG, METHADONE 5 MG PO SCH (06:03)
[2020-07-30] MEDS: PRENATAL VITAMINS W/ FOLIC ACID TABLET (FP) PO SCH (10:15)
[2020-07-30] MEDS: ATOVAQUONE 750 MG/5 ML (UNIT-DOSE PACKAGING) PO SCH (10:16)
[2020-07-30] MEDS: BUDESONIDE/FORMETEROL FUMARATE 160/4.5 mcg INHALER IH SCH ×2 (10:16→21:51)
[2020-07-30] MEDS: MINERAL OIL/PETROLAT/WATER TOPICAL CREAM 113 GM JAR TP SCH (10:17)
[2020-07-30] MEDS: PATIENT'S OWN MEDICATION (NON-FORMULARY) (Bictegrav/Emtricit/Tenofov Ala 1 EACH Tablet) PO SCH (10:18)
[2020-07-30] MEDS: LEVETIRACETAM PO SCH ×2 (10:18→21:49)
[2020-07-30] MEDS: CHOLECALCIFEROL U PO SCH (10:18)
[2020-07-30] MEDS: ASPIRIN PO SCH (10:18)
[2020-07-30] MEDS: NICOTINE 7 MG/24 HOURS TOPICAL PATCH TD SCH (10:19)
[2020-07-30] MEDS ORDERED: PT OWN MED DRAWER 7, Y5N ONE (21:49)
[2020-07-30] MEDS: ATORVASTATIN CALCIUM PO SCH (21:49)
[2020-07-30] MEDS: MELATONIN 5 MG TABLETS PO PRN (21:50)
[2020-07-30] MEDS: THIAMINE HCL 100 MG TABLET (FP) PO SCH (21:53)
[2020-07-31] MEDS ORDERED: METHADONE HCL 5 MG TABLET ONE (06:05)
[2020-07-31] MEDS ORDERED: METHADONE HCL 10 MG TABLET ONE (06:06)
[2020-07-31] MEDS ORDERED: METHADONE HCL 40 MG DISPERSABLE TABLET ONE (06:06)
[2020-07-31] MEDS: METHADONE 120 MG, METHADONE 10 MG, METHADONE 5 MG PO SCH (06:06)
[2020-07-31] MEDS: PRENATAL VITAMINS W/ FOLIC ACID TABLET (FP) PO SCH (10:09)
[2020-07-31] MEDS: BUDESONIDE/FORMETEROL FUMARATE 160/4.5 mcg INHALER IH SCH ×2 (10:10→21:41)
[2020-07-31] MEDS: MINERAL OIL/PETROLAT/WATER TOPICAL CREAM 113 GM JAR TP SCH (10:10)
[2020-07-31] MEDS: PATIENT'S OWN MEDICATION (NON-FORMULARY) (Bictegrav/Emtricit/Tenofov Ala 1 EACH Tablet) PO SCH (10:11)
[2020-07-31] MEDS: CHOLECALCIFEROL U PO SCH (10:11)
[2020-07-31] MEDS: LEVETIRACETAM PO SCH ×2 (10:12→21:41)
[2020-07-31] MEDS: ASPIRIN PO SCH (10:12)
[2020-07-31] MEDS: ATOVAQUONE 750 MG/5 ML (UNIT-DOSE PACKAGING) PO SCH (10:13)
[2020-07-31] MEDS: NICOTINE 7 MG/24 HOURS TOPICAL PATCH TD SCH (10:13)
[2020-07-31] MEDS ORDERED: PT OWN MED DRAWER 7, Y5N ONE (20:07)
[2020-07-31] MEDS: MELATONIN 5 MG TABLETS PO PRN (21:40)
[2020-07-31] MEDS: ATORVASTATIN CALCIUM PO SCH (21:41)
[2020-07-31] MEDS: THIAMINE HCL 100 MG TABLET (FP) PO SCH (21:41)
[2020-08-01] MEDS ORDERED: METHADONE HCL 10 MG TABLET ONE (05:40)
[2020-08-01] MEDS ORDERED: METHADONE HCL 5 MG TABLET ONE (05:40)
[2020-08-01] MEDS ORDERED: METHADONE HCL 40 MG DISPERSABLE TABLET ONE (05:40)
[2020-08-01] MEDS: METHADONE 120 MG, METHADONE 10 MG, METHADONE 5 MG PO SCH (05:50)
[2020-08-01] MEDS: CHOLECALCIFEROL U PO SCH (10:24)
[2020-08-01] MEDS: LEVETIRACETAM PO SCH ×2 (10:24→21:17)
[2020-08-01] MEDS: ASPIRIN PO SCH (10:24)
[2020-08-01] MEDS: PATIENT'S OWN MEDICATION (NON-FORMULARY) (Bictegrav/Emtricit/Tenofov Ala 1 EACH Tablet) PO SCH (10:24)
[2020-08-01] MEDS: PRENATAL VITAMINS W/ FOLIC ACID TABLET (FP) PO SCH (10:25)
[2020-08-01] MEDS: ATOVAQUONE 750 MG/5 ML (UNIT-DOSE PACKAGING) PO SCH (10:25)
[2020-08-01] MEDS: NICOTINE 7 MG/24 HOURS TOPICAL PATCH TD SCH (10:26)
[2020-08-01] MEDS: BUDESONIDE/FORMETEROL FUMARATE 160/4.5 mcg INHALER IH SCH ×2 (10:26→22:07)
[2020-08-01] MEDS: MINERAL OIL/PETROLAT/WATER TOPICAL CREAM 113 GM JAR TP SCH (10:27)
[2020-08-01] MEDS ORDERED: PT OWN MED DRAWER 7, Y5N ONE (20:52)
[2020-08-01] MEDS: THIAMINE HCL 100 MG TABLET (FP) PO SCH (21:17)
[2020-08-01] MEDS: MELATONIN 5 MG TABLETS PO PRN (21:17)
[2020-08-01] MEDS: ATORVASTATIN CALCIUM PO SCH (21:17)
[2020-08-02] MEDS ORDERED: METHADONE HCL 5 MG TABLET ONE (05:56)
[2020-08-02] MEDS ORDERED: METHADONE HCL 40 MG DISPERSABLE TABLET ONE (05:57)
[2020-08-02] MEDS ORDERED: METHADONE HCL 10 MG TABLET ONE (05:57)
[2020-08-02] MEDS: METHADONE 120 MG, METHADONE 10 MG, METHADONE 5 MG PO SCH (06:04)
[2020-08-02] MEDS: ASPIRIN PO SCH (10:23)
[2020-08-02] MEDS: CHOLECALCIFEROL U PO SCH (10:23)
[2020-08-02] MEDS: LEVETIRACETAM PO SCH ×2 (10:23→21:49)
[2020-08-02] MEDS: PATIENT'S OWN MEDICATION (NON-FORMULARY) (Bictegrav/Emtricit/Tenofov Ala 1 EACH Tablet) PO SCH (10:24)
[2020-08-02] MEDS: BUDESONIDE/FORMETEROL FUMARATE 160/4.5 mcg INHALER IH SCH ×2 (10:24→21:49)
[2020-08-02] MEDS: ATOVAQUONE 750 MG/5 ML (UNIT-DOSE PACKAGING) PO SCH (10:24)
[2020-08-02] MEDS: PRENATAL VITAMINS W/ FOLIC ACID TABLET (FP) PO SCH (10:24)
[2020-08-02] MEDS: MINERAL OIL/PETROLAT/WATER TOPICAL CREAM 113 GM JAR TP SCH (10:26)
[2020-08-02] MEDS: NICOTINE 7 MG/24 HOURS TOPICAL PATCH TD SCH (10:54)
[2020-08-02] MEDS: ATORVASTATIN CALCIUM PO SCH (21:49)
[2020-08-02] MEDS: MELATONIN 5 MG TABLETS PO PRN (21:50)
[2020-08-02] MEDS: THIAMINE HCL 100 MG TABLET (FP) PO SCH (21:50)
[2020-08-02] MEDS: hydrOXYzine PAMOATE 25 MG CAPSULE (FP) PO PRN (21:50)
[2020-08-03] MEDS ORDERED: METHADONE HCL 40 MG DISPERSABLE TABLET ONE (05:21)
[2020-08-03] MEDS ORDERED: METHADONE HCL 10 MG TABLET ONE (05:21)
[2020-08-03] MEDS ORDERED: METHADONE HCL 5 MG TABLET ONE (05:21)
[2020-08-03] MEDS: METHADONE 120 MG, METHADONE 10 MG, METHADONE 5 MG PO SCH (06:14)
[2020-08-03] MEDS: PRENATAL VITAMINS W/ FOLIC ACID TABLET (FP) PO SCH (09:49)
[2020-08-03] MEDS: PATIENT'S OWN MEDICATION (NON-FORMULARY) (Bictegrav/Emtricit/Tenofov Ala 1 EACH Tablet) PO SCH (09:50)
[2020-08-03] MEDS: ASPIRIN PO SCH (09:50)
[2020-08-03] MEDS: NICOTINE 7 MG/24 HOURS TOPICAL PATCH TD SCH (09:50)
[2020-08-03] MEDS: CHOLECALCIFEROL U PO SCH (09:50)
[2020-08-03] MEDS: LEVETIRACETAM PO SCH ×2 (09:50→21:40)
[2020-08-03] MEDS: BUDESONIDE/FORMETEROL FUMARATE 160/4.5 mcg INHALER IH SCH ×2 (09:51→21:40)
[2020-08-03] MEDS: ATOVAQUONE 750 MG/5 ML (UNIT-DOSE PACKAGING) PO SCH (09:51)
[2020-08-03] MEDS: MINERAL OIL/PETROLAT/WATER TOPICAL CREAM 113 GM JAR TP SCH (09:52)
[2020-08-03] MEDS: MELATONIN 5 MG TABLETS PO PRN (21:40)
[2020-08-03] MEDS: hydrOXYzine PAMOATE 25 MG CAPSULE (FP) PO PRN (21:40)
[2020-08-03] MEDS: ATORVASTATIN CALCIUM PO SCH (21:40)
[2020-08-03] MEDS: THIAMINE HCL 100 MG TABLET (FP) PO SCH (21:40)
[2020-08-04] MEDS ORDERED: METHADONE HCL 10 MG TABLET ONE (03:20)
[2020-08-04] MEDS ORDERED: METHADONE HCL 5 MG TABLET ONE (03:20)
[2020-08-04] MEDS ORDERED: METHADONE HCL 40 MG DISPERSABLE TABLET ONE (03:21)
[2020-08-04] MEDS: METHADONE 120 MG, METHADONE 10 MG, METHADONE 5 MG PO SCH (05:57)
[2020-08-04] MEDS: ASPIRIN PO SCH (10:11)
[2020-08-04] MEDS: LEVETIRACETAM PO SCH ×2 (10:12→21:35)
[2020-08-04] MEDS: ATOVAQUONE 750 MG/5 ML (UNIT-DOSE PACKAGING) PO SCH (10:12)
[2020-08-04] MEDS: PATIENT'S OWN MEDICATION (NON-FORMULARY) (Bictegrav/Emtricit/Tenofov Ala 1 EACH Tablet) PO SCH (10:12)
[2020-08-04] MEDS: CHOLECALCIFEROL U PO SCH (10:12)
[2020-08-04] MEDS: NICOTINE 7 MG/24 HOURS TOPICAL PATCH TD SCH (10:12)
[2020-08-04] MEDS: PRENATAL VITAMINS W/ FOLIC ACID TABLET (FP) PO SCH (10:13)
[2020-08-04] MEDS: BUDESONIDE/FORMETEROL FUMARATE 160/4.5 mcg INHALER IH SCH ×2 (10:13→21:31)
[2020-08-04] MEDS: MINERAL OIL/PETROLAT/WATER TOPICAL CREAM 113 GM JAR TP SCH (10:14)
[2020-08-04] MEDS: hydrOXYzine PAMOATE 25 MG CAPSULE (FP) PO PRN (10:14)
[2020-08-04] MEDS: MELATONIN 5 MG TABLETS PO PRN (21:31)
[2020-08-04] MEDS: THIAMINE HCL 100 MG TABLET (FP) PO SCH (21:31)
[2020-08-04] MEDS: ATORVASTATIN CALCIUM PO SCH (21:33)
[2020-08-05] MEDS ORDERED: METHADONE HCL 10 MG TABLET ONE (05:39)
[2020-08-05] MEDS ORDERED: METHADONE HCL 5 MG TABLET ONE (05:39)
[2020-08-05] MEDS ORDERED: METHADONE HCL 40 MG DISPERSABLE TABLET ONE (05:40)
[2020-08-05] MEDS: METHADONE 120 MG, METHADONE 10 MG, METHADONE 5 MG PO SCH (05:56)
[2020-08-05] MEDS: PRENATAL VITAMINS W/ FOLIC ACID TABLET (FP) PO SCH (10:06)
[2020-08-05] MEDS: PATIENT'S OWN MEDICATION (NON-FORMULARY) (Bictegrav/Emtricit/Tenofov Ala 1 EACH Tablet) PO SCH (10:06)
[2020-08-05] MEDS: ATOVAQUONE 750 MG/5 ML (UNIT-DOSE PACKAGING) PO SCH (10:07)
[2020-08-05] MEDS: ASPIRIN PO SCH (10:08)
[2020-08-05] MEDS: LEVETIRACETAM PO SCH ×2 (10:08→21:52)
[2020-08-05] MEDS: NICOTINE 7 MG/24 HOURS TOPICAL PATCH TD SCH (10:09)
[2020-08-05] MEDS: BUDESONIDE/FORMETEROL FUMARATE 160/4.5 mcg INHALER IH SCH ×2 (10:09→21:53)
[2020-08-05] MEDS: CHOLECALCIFEROL U PO SCH (10:09)
[2020-08-05] MEDS: MINERAL OIL/PETROLAT/WATER TOPICAL CREAM 113 GM JAR TP SCH (10:09)
[2020-08-05] MEDS ORDERED: PT OWN MED DRAWER 7, Y5N ONE (20:50)
[2020-08-05] MEDS: ATORVASTATIN CALCIUM PO SCH (21:52)
[2020-08-05] MEDS: MELATONIN 5 MG TABLETS PO PRN (21:52)
[2020-08-05] MEDS: THIAMINE HCL 100 MG TABLET (FP) PO SCH (21:53)
[2020-08-06] MEDS ORDERED: METHADONE HCL 5 MG TABLET ONE (05:18)
[2020-08-06] MEDS ORDERED: METHADONE HCL 40 MG DISPERSABLE TABLET ONE (05:18)
[2020-08-06] MEDS ORDERED: METHADONE HCL 10 MG TABLET ONE (05:18)
[2020-08-06] MEDS: METHADONE 120 MG, METHADONE 10 MG, METHADONE 5 MG PO SCH (05:41)
[2020-08-06] MEDS: BUDESONIDE/FORMETEROL FUMARATE 160/4.5 mcg INHALER IH SCH ×2 (10:27→21:06)
[2020-08-06] MEDS: ASPIRIN PO SCH (10:28)
[2020-08-06] MEDS: NICOTINE 7 MG/24 HOURS TOPICAL PATCH TD SCH (10:28)
[2020-08-06] MEDS: LEVETIRACETAM PO SCH ×2 (10:28→21:06)
[2020-08-06] MEDS: PRENATAL VITAMINS W/ FOLIC ACID TABLET (FP) PO SCH (10:28)
[2020-08-06] MEDS: PATIENT'S OWN MEDICATION (NON-FORMULARY) (Bictegrav/Emtricit/Tenofov Ala 1 EACH Tablet) PO SCH (10:28)
[2020-08-06] MEDS: CHOLECALCIFEROL U PO SCH (10:28)
[2020-08-06] MEDS: ATOVAQUONE 750 MG/5 ML (UNIT-DOSE PACKAGING) PO SCH (10:29)
[2020-08-06] MEDS: MINERAL OIL/PETROLAT/WATER TOPICAL CREAM 113 GM JAR TP SCH (10:30)
[2020-08-06] MEDS: ATORVASTATIN CALCIUM PO SCH (21:06)
[2020-08-06] MEDS: MELATONIN 5 MG TABLETS PO PRN (21:07)
[2020-08-06] MEDS: THIAMINE HCL 100 MG TABLET (FP) PO SCH (21:07)
[2020-08-06] MEDS: hydrOXYzine PAMOATE 25 MG CAPSULE (FP) PO PRN (21:07)
[2020-08-07] MEDS ORDERED: METHADONE HCL 5 MG TABLET ONE (06:08)
[2020-08-07] MEDS: METHADONE 120 MG, METHADONE 10 MG, METHADONE 5 MG PO SCH (06:09)
[2020-08-07] MEDS ORDERED: METHADONE HCL 40 MG DISPERSABLE TABLET ONE (06:09)
[2020-08-07] MEDS ORDERED: METHADONE HCL 10 MG TABLET ONE (06:09)
[2020-08-07] MEDS: PRENATAL VITAMINS W/ FOLIC ACID TABLET (FP) PO SCH (09:53)
[2020-08-07] MEDS: BUDESONIDE/FORMETEROL FUMARATE 160/4.5 mcg INHALER IH SCH ×2 (09:53→21:08)
[2020-08-07] MEDS: LEVETIRACETAM PO SCH ×2 (09:54→21:07)
[2020-08-07] MEDS: CHOLECALCIFEROL U PO SCH (09:54)
[2020-08-07] MEDS: PATIENT'S OWN MEDICATION (NON-FORMULARY) (Bictegrav/Emtricit/Tenofov Ala 1 EACH Tablet) PO SCH (09:54)
[2020-08-07] MEDS: ASPIRIN PO SCH (09:54)
[2020-08-07] MEDS: NICOTINE 7 MG/24 HOURS TOPICAL PATCH TD SCH (09:55)
[2020-08-07] MEDS: MINERAL OIL/PETROLAT/WATER TOPICAL CREAM 113 GM JAR TP SCH (09:55)
[2020-08-07] MEDS: ATOVAQUONE 750 MG/5 ML (UNIT-DOSE PACKAGING) PO SCH (09:55)
[2020-08-07] MEDS: ATORVASTATIN CALCIUM PO SCH (21:07)
[2020-08-07] MEDS: hydrOXYzine PAMOATE 25 MG CAPSULE (FP) PO PRN (21:08)
[2020-08-07] MEDS: MELATONIN 5 MG TABLETS PO PRN (21:08)
[2020-08-07] MEDS: THIAMINE HCL 100 MG TABLET (FP) PO SCH (21:08)
[2020-08-08] MEDS ORDERED: METHADONE HCL 5 MG TABLET ONE (05:26)
[2020-08-08] MEDS ORDERED: METHADONE HCL 10 MG TABLET ONE (05:27)
[2020-08-08] MEDS ORDERED: METHADONE HCL 40 MG DISPERSABLE TABLET ONE (05:27)
[2020-08-08] MEDS: METHADONE 120 MG, METHADONE 10 MG, METHADONE 5 MG PO SCH (06:06)
[2020-08-08] MEDS: PRENATAL VITAMINS W/ FOLIC ACID TABLET (FP) PO SCH (10:08)
[2020-08-08] MEDS: BUDESONIDE/FORMETEROL FUMARATE 160/4.5 mcg INHALER IH SCH ×2 (10:09→22:03)
[2020-08-08] MEDS: MINERAL OIL/PETROLAT/WATER TOPICAL CREAM 113 GM JAR TP SCH (10:09)
[2020-08-08] MEDS: ASPIRIN PO SCH (10:09)
[2020-08-08] MEDS: PATIENT'S OWN MEDICATION (NON-FORMULARY) (Bictegrav/Emtricit/Tenofov Ala 1 EACH Tablet) PO SCH (10:09)
[2020-08-08] MEDS: LEVETIRACETAM PO SCH ×2 (10:09→21:35)
[2020-08-08] MEDS: CHOLECALCIFEROL U PO SCH (10:09)
[2020-08-08] MEDS: ATOVAQUONE 750 MG/5 ML (UNIT-DOSE PACKAGING) PO SCH (10:10)
[2020-08-08] MEDS: NICOTINE 7 MG/24 HOURS TOPICAL PATCH TD SCH (11:17)
[2020-08-08] MEDS: ATORVASTATIN CALCIUM PO SCH (21:35)
[2020-08-08] MEDS: MELATONIN 5 MG TABLETS PO PRN (21:35)
[2020-08-08] MEDS: THIAMINE HCL 100 MG TABLET (FP) PO SCH (22:02)
[2020-08-09] MEDS ORDERED: METHADONE HCL 40 MG DISPERSABLE TABLET ONE (04:08)
[2020-08-09] MEDS ORDERED: METHADONE HCL 10 MG TABLET ONE (04:08)
[2020-08-09] MEDS ORDERED: METHADONE HCL 5 MG TABLET ONE (04:08)
[2020-08-09] MEDS: METHADONE 120 MG, METHADONE 10 MG, METHADONE 5 MG PO SCH (06:11)
[2020-08-09] MEDS ORDERED: PT OWN MED DRAWER 7, Y5N ONE (09:07)
[2020-08-09] MEDS: ASPIRIN PO SCH (09:56)
[2020-08-09] MEDS: PATIENT'S OWN MEDICATION (NON-FORMULARY) (Bictegrav/Emtricit/Tenofov Ala 1 EACH Tablet) PO SCH (09:56)
[2020-08-09] MEDS: CHOLECALCIFEROL U PO SCH (09:56)
[2020-08-09] MEDS: LEVETIRACETAM PO SCH ×2 (09:56→21:16)
[2020-08-09] MEDS: ATOVAQUONE 750 MG/5 ML (UNIT-DOSE PACKAGING) PO SCH (09:57)
[2020-08-09] MEDS: PRENATAL VITAMINS W/ FOLIC ACID TABLET (FP) PO SCH (09:57)
[2020-08-09] MEDS: MINERAL OIL/PETROLAT/WATER TOPICAL CREAM 113 GM JAR TP SCH (09:58)
[2020-08-09] MEDS: NICOTINE 7 MG/24 HOURS TOPICAL PATCH TD SCH (09:58)
[2020-08-09] MEDS: BUDESONIDE/FORMETEROL FUMARATE 160/4.5 mcg INHALER IH SCH ×2 (09:58→21:16)
[2020-08-09] MEDS: MELATONIN 5 MG TABLETS PO PRN (21:15)
[2020-08-09] MEDS: ATORVASTATIN CALCIUM PO SCH (21:16)
[2020-08-09] MEDS: THIAMINE HCL 100 MG TABLET (FP) PO SCH (21:17)
[2020-08-10] MEDS ORDERED: METHADONE HCL 40 MG DISPERSABLE TABLET ONE (05:29)
[2020-08-10] MEDS ORDERED: METHADONE HCL 5 MG TABLET ONE (05:29)
[2020-08-10] MEDS ORDERED: METHADONE HCL 10 MG TABLET ONE (05:29)
[2020-08-10] MEDS: METHADONE 120 MG, METHADONE 10 MG, METHADONE 5 MG PO SCH (06:01)
[2020-08-10] MEDS: NICOTINE 7 MG/24 HOURS TOPICAL PATCH TD SCH (09:32)
[2020-08-10] MEDS: CHOLECALCIFEROL U PO SCH (09:32)
[2020-08-10] MEDS: MINERAL OIL/PETROLAT/WATER TOPICAL CREAM 113 GM JAR TP SCH (09:32)
[2020-08-10] MEDS: PRENATAL VITAMINS W/ FOLIC ACID TABLET (FP) PO SCH (09:32)
[2020-08-10] MEDS: ASPIRIN PO SCH (09:32)
[2020-08-10] MEDS: ATOVAQUONE 750 MG/5 ML (UNIT-DOSE PACKAGING) PO SCH (09:32)
[2020-08-10] MEDS: LEVETIRACETAM PO SCH ×2 (09:32→21:02)
[2020-08-10] MEDS: PATIENT'S OWN MEDICATION (NON-FORMULARY) (Bictegrav/Emtricit/Tenofov Ala 1 EACH Tablet) PO SCH (09:32)
[2020-08-10] MEDS: BUDESONIDE/FORMETEROL FUMARATE 160/4.5 mcg INHALER IH SCH ×2 (09:33→21:03)
[2020-08-10] MEDS: THIAMINE HCL 100 MG TABLET (FP) PO SCH (21:02)
[2020-08-10] MEDS: MELATONIN 5 MG TABLETS PO PRN (21:02)
[2020-08-10] MEDS: ATORVASTATIN CALCIUM PO SCH (21:02)
[2020-08-11] MEDS ORDERED: METHADONE HCL 10 MG TABLET ONE (05:35)
[2020-08-11] MEDS ORDERED: METHADONE HCL 40 MG DISPERSABLE TABLET ONE (05:35)
[2020-08-11] MEDS ORDERED: METHADONE HCL 5 MG TABLET ONE (05:35)
[2020-08-11] MEDS: METHADONE 120 MG, METHADONE 10 MG, METHADONE 5 MG PO SCH (06:05)
[2020-08-11] MEDS: CHOLECALCIFEROL U PO SCH (09:48)
[2020-08-11] MEDS: LEVETIRACETAM PO SCH ×2 (09:48→21:51)
[2020-08-11] MEDS: PATIENT'S OWN MEDICATION (NON-FORMULARY) (Bictegrav/Emtricit/Tenofov Ala 1 EACH Tablet) PO SCH (09:48)
[2020-08-11] MEDS: ASPIRIN PO SCH (09:48)
[2020-08-11] MEDS: NICOTINE 7 MG/24 HOURS TOPICAL PATCH TD SCH (09:49)
[2020-08-11] MEDS: ATOVAQUONE 750 MG/5 ML (UNIT-DOSE PACKAGING) PO SCH (09:49)
[2020-08-11] MEDS: PRENATAL VITAMINS W/ FOLIC ACID TABLET (FP) PO SCH (09:49)
[2020-08-11] MEDS: BUDESONIDE/FORMETEROL FUMARATE 160/4.5 mcg INHALER IH SCH ×2 (09:49→21:50)
[2020-08-11] MEDS: MINERAL OIL/PETROLAT/WATER TOPICAL CREAM 113 GM JAR TP SCH (09:51)
[2020-08-11] MEDS: THIAMINE HCL 100 MG TABLET (FP) PO SCH (21:50)
[2020-08-11] MEDS: MELATONIN 5 MG TABLETS PO PRN (21:50)
[2020-08-11] MEDS: hydrOXYzine PAMOATE 25 MG CAPSULE (FP) PO PRN (21:50)
[2020-08-11] MEDS: ATORVASTATIN CALCIUM PO SCH (21:51)
[2020-08-12] MEDS ORDERED: METHADONE HCL 5 MG TABLET ONE (03:53)
[2020-08-12] MEDS ORDERED: METHADONE HCL 10 MG TABLET ONE (03:53)
[2020-08-12] MEDS ORDERED: METHADONE HCL 40 MG DISPERSABLE TABLET ONE (03:53)
[2020-08-12] MEDS: METHADONE 120 MG, METHADONE 10 MG, METHADONE 5 MG PO SCH (06:02)
[2020-08-12] MEDS: PRENATAL VITAMINS W/ FOLIC ACID TABLET (FP) PO SCH (09:45)
[2020-08-12] MEDS: PATIENT'S OWN MEDICATION (NON-FORMULARY) (Bictegrav/Emtricit/Tenofov Ala 1 EACH Tablet) PO SCH (09:45)
[2020-08-12] MEDS: ASPIRIN PO SCH (09:45)
[2020-08-12] MEDS: CHOLECALCIFEROL U PO SCH (09:45)
[2020-08-12] MEDS: LEVETIRACETAM PO SCH ×2 (09:45→21:28)
[2020-08-12] MEDS: BUDESONIDE/FORMETEROL FUMARATE 160/4.5 mcg INHALER IH SCH ×2 (09:46→21:27)
[2020-08-12] MEDS: ATOVAQUONE 750 MG/5 ML (UNIT-DOSE PACKAGING) PO SCH (09:46)
[2020-08-12] MEDS: MINERAL OIL/PETROLAT/WATER TOPICAL CREAM 113 GM JAR TP SCH (09:46)
[2020-08-12] MEDS: NICOTINE 7 MG/24 HOURS TOPICAL PATCH TD SCH (09:47)
[2020-08-12] MEDS ORDERED: MASKS NR ONE (12:28)
[2020-08-12] MEDS: hydrOXYzine PAMOATE 25 MG CAPSULE (FP) PO PRN (21:27)
[2020-08-12] MEDS: THIAMINE HCL 100 MG TABLET (FP) PO SCH (21:27)
[2020-08-12] MEDS: MELATONIN 5 MG TABLETS PO PRN (21:27)
[2020-08-12] MEDS: ATORVASTATIN CALCIUM PO SCH (21:28)
[2020-08-13] MEDS ORDERED: METHADONE HCL 10 MG TABLET ONE (03:07)
[2020-08-13] MEDS ORDERED: METHADONE HCL 40 MG DISPERSABLE TABLET ONE (03:07)
[2020-08-13] MEDS ORDERED: METHADONE HCL 5 MG TABLET ONE (03:07)
[2020-08-13] MEDS: METHADONE 120 MG, METHADONE 10 MG, METHADONE 5 MG PO SCH (05:52)
[2020-08-13] MEDS: PATIENT'S OWN MEDICATION (NON-FORMULARY) (Bictegrav/Emtricit/Tenofov Ala 1 EACH Tablet) PO SCH (09:44)
[2020-08-13] MEDS: PRENATAL VITAMINS W/ FOLIC ACID TABLET (FP) PO SCH (09:44)
[2020-08-13] MEDS: LEVETIRACETAM PO SCH ×2 (09:44→21:39)
[2020-08-13] MEDS: NICOTINE 7 MG/24 HOURS TOPICAL PATCH TD SCH (09:44)
[2020-08-13] MEDS: CHOLECALCIFEROL U PO SCH (09:44)
[2020-08-13] MEDS: ASPIRIN PO SCH (09:44)
[2020-08-13] MEDS: ATOVAQUONE 750 MG/5 ML (UNIT-DOSE PACKAGING) PO SCH (09:45)
[2020-08-13] MEDS: BUDESONIDE/FORMETEROL FUMARATE 160/4.5 mcg INHALER IH SCH ×2 (09:45→21:47)
[2020-08-13] MEDS: MINERAL OIL/PETROLAT/WATER TOPICAL CREAM 113 GM JAR TP SCH (09:45)
[2020-08-13] MEDS: ATORVASTATIN CALCIUM PO SCH (21:38)
[2020-08-13] MEDS: MELATONIN 5 MG TABLETS PO PRN (21:39)
[2020-08-13] MEDS: THIAMINE HCL 100 MG TABLET (FP) PO SCH (21:39)
[2020-08-14] MEDS ORDERED: METHADONE HCL 5 MG TABLET ONE (04:04)
[2020-08-14] MEDS ORDERED: METHADONE HCL 10 MG TABLET ONE (04:05)
[2020-08-14] MEDS ORDERED: METHADONE HCL 40 MG DISPERSABLE TABLET ONE (04:05)
[2020-08-14] MEDS: METHADONE 120 MG, METHADONE 10 MG, METHADONE 5 MG PO SCH (06:12)
[2020-08-14] MEDS: PRENATAL VITAMINS W/ FOLIC ACID TABLET (FP) PO SCH (10:01)
[2020-08-14] MEDS: BUDESONIDE/FORMETEROL FUMARATE 160/4.5 mcg INHALER IH SCH ×2 (10:01→21:21)
[2020-08-14] MEDS: ASPIRIN PO SCH (10:02)
[2020-08-14] MEDS: MINERAL OIL/PETROLAT/WATER TOPICAL CREAM 113 GM JAR TP SCH (10:02)
[2020-08-14] MEDS: LEVETIRACETAM PO SCH ×2 (10:02→21:21)
[2020-08-14] MEDS: ATOVAQUONE 750 MG/5 ML (UNIT-DOSE PACKAGING) PO SCH (10:02)
[2020-08-14] MEDS: CHOLECALCIFEROL U PO SCH (10:02)
[2020-08-14] MEDS: PATIENT'S OWN MEDICATION (NON-FORMULARY) (Bictegrav/Emtricit/Tenofov Ala 1 EACH Tablet) PO SCH (10:02)
[2020-08-14] MEDS: NICOTINE 7 MG/24 HOURS TOPICAL PATCH TD SCH (10:03)
[2020-08-14] MEDS: THIAMINE HCL 100 MG TABLET (FP) PO SCH (21:19)
[2020-08-14] MEDS: ATORVASTATIN CALCIUM PO SCH (21:19)
[2020-08-14] MEDS: MELATONIN 5 MG TABLETS PO PRN (21:19)
[2020-08-15] MEDS ORDERED: METHADONE HCL 40 MG DISPERSABLE TABLET ONE (04:26)
[2020-08-15] MEDS ORDERED: METHADONE HCL 10 MG TABLET ONE (04:26)
[2020-08-15] MEDS ORDERED: METHADONE HCL 5 MG TABLET ONE (04:26)
[2020-08-15] MEDS: METHADONE 120 MG, METHADONE 10 MG, METHADONE 5 MG PO SCH (06:16)
[2020-08-15] MEDS: ATOVAQUONE 750 MG/5 ML (UNIT-DOSE PACKAGING) PO SCH (09:55)
[2020-08-15] MEDS: MINERAL OIL/PETROLAT/WATER TOPICAL CREAM 113 GM JAR TP SCH (09:55)
[2020-08-15] MEDS: CHOLECALCIFEROL U PO SCH (09:55)
[2020-08-15] MEDS: ASPIRIN PO SCH (09:55)
[2020-08-15] MEDS: PATIENT'S OWN MEDICATION (NON-FORMULARY) (Bictegrav/Emtricit/Tenofov Ala 1 EACH Tablet) PO SCH (09:55)
[2020-08-15] MEDS: PRENATAL VITAMINS W/ FOLIC ACID TABLET (FP) PO SCH (09:56)
[2020-08-15] MEDS: LEVETIRACETAM PO SCH ×2 (09:56→21:15)
[2020-08-15] MEDS: NICOTINE 7 MG/24 HOURS TOPICAL PATCH TD SCH (09:56)
[2020-08-15] MEDS: BUDESONIDE/FORMETEROL FUMARATE 160/4.5 mcg INHALER IH SCH ×2 (09:56→21:17)
[2020-08-15] MEDS: THIAMINE HCL 100 MG TABLET (FP) PO SCH (21:15)
[2020-08-15] MEDS: ATORVASTATIN CALCIUM PO SCH (21:15)
[2020-08-15] MEDS: MELATONIN 5 MG TABLETS PO PRN (21:16)
[2020-08-15] MEDS: DOCUSATE SODIUM 100 MG CAPSULE (FP) PO SCH (21:17)
[2020-08-15] MEDS: PSYLLIUM 5.85 GM PACKET PO SCH (21:18)
[2020-08-16] MEDS ORDERED: METHADONE HCL 10 MG TABLET ONE (03:44)
[2020-08-16] MEDS ORDERED: METHADONE HCL 5 MG TABLET ONE (03:44)
[2020-08-16] MEDS ORDERED: METHADONE HCL 40 MG DISPERSABLE TABLET ONE (03:44)
[2020-08-16] MEDS: METHADONE 120 MG, METHADONE 10 MG, METHADONE 5 MG PO SCH (06:09)
[2020-08-16 07:03] VITALS: BP 135/85; PULSE 75; TEMP 98.1
[2020-08-16] MEDS: PRENATAL VITAMINS W/ FOLIC ACID TABLET (FP) PO SCH (09:38)
[2020-08-16] MEDS: LEVETIRACETAM PO SCH ×2 (09:39→21:43)
[2020-08-16] MEDS: PATIENT'S OWN MEDICATION (NON-FORMULARY) (Bictegrav/Emtricit/Tenofov Ala 1 EACH Tablet) PO SCH (09:39)
[2020-08-16] MEDS: PSYLLIUM 5.85 GM PACKET PO SCH ×2 (09:39→21:45)
[2020-08-16] MEDS: MINERAL OIL/PETROLAT/WATER TOPICAL CREAM 113 GM JAR TP SCH (09:39)
[2020-08-16] MEDS: ASPIRIN PO SCH (09:39)
[2020-08-16] MEDS: CHOLECALCIFEROL U PO SCH (09:39)
[2020-08-16] MEDS: BUDESONIDE/FORMETEROL FUMARATE 160/4.5 mcg INHALER IH SCH ×2 (09:39→21:45)
[2020-08-16] MEDS: ATOVAQUONE 750 MG/5 ML (UNIT-DOSE PACKAGING) PO SCH (09:40)
[2020-08-16] MEDS: NICOTINE 7 MG/24 HOURS TOPICAL PATCH TD SCH (09:40)
[2020-08-16] MEDS: ATORVASTATIN CALCIUM PO SCH (21:43)
[2020-08-16] MEDS: DOCUSATE SODIUM 100 MG CAPSULE (FP) PO SCH (21:43)
[2020-08-16] MEDS: THIAMINE HCL 100 MG TABLET (FP) PO SCH (21:43)
[2020-08-16] MEDS: MELATONIN 5 MG TABLETS PO PRN (21:46)
[2020-08-16] MEDS ORDERED: PT OWN MED DRAWER 7, Y5N ONE (21:46)
[2020-08-17] MEDS ORDERED: METHADONE HCL 5 MG TABLET ONE (03:14)
[2020-08-17] MEDS ORDERED: METHADONE HCL 40 MG DISPERSABLE TABLET ONE (03:15)
[2020-08-17] MEDS ORDERED: METHADONE HCL 10 MG TABLET ONE (03:15)
[2020-08-17] MEDS: METHADONE 120 MG, METHADONE 10 MG, METHADONE 5 MG PO SCH (06:08)
[2020-08-17] MEDS: PRENATAL VITAMINS W/ FOLIC ACID TABLET (FP) PO SCH (09:52)
[2020-08-17] MEDS: ASPIRIN PO SCH (09:53)
[2020-08-17] MEDS: PATIENT'S OWN MEDICATION (NON-FORMULARY) (Bictegrav/Emtricit/Tenofov Ala 1 EACH Tablet) PO SCH (09:53)
[2020-08-17] MEDS: LEVETIRACETAM PO SCH (09:53)
[2020-08-17] MEDS: CHOLECALCIFEROL U PO SCH (09:53)
[2020-08-17] MEDS: BUDESONIDE/FORMETEROL FUMARATE 160/4.5 mcg INHALER IH SCH (09:53)
[2020-08-17] MEDS: PSYLLIUM 5.85 GM PACKET PO SCH (09:54)
[2020-08-17] MEDS: ATOVAQUONE 750 MG/5 ML (UNIT-DOSE PACKAGING) PO SCH (09:54)
[2020-08-17] MEDS: MINERAL OIL/PETROLAT/WATER TOPICAL CREAM 113 GM JAR TP SCH (09:56)
[2020-08-17] MEDS: NICOTINE 7 MG/24 HOURS TOPICAL PATCH TD SCH (09:56)
== END 2020-08-17 10:15 | disposition home or self-care (01) | DRG 772 ==
LOC: YASAS 12:31 → Y5N 21:43
PROVIDERS: ADMIT Allergy & Immunology; ATTEND Allergy & Immunology
PROC: HZ42ZZZ Group Counseling for Substance Abuse Treatment, Cognitive-Behavioral (ICD-10-PCS; principal; 2020-07-20)
DX: F10.20 Alcohol dependence, uncomplicated (principal); F14.20 Cocaine dependence, uncomplicated; F11.20 Opioid dependence, uncomplicated; F13.20 Sedative, hypnotic or anxiolytic dependence, uncomplicated; F17.210 Nicotine dependence, cigarettes, uncomplicated; F32.9 Major depressive disorder, single episode, unspecified; J44.9 Chronic obstructive pulmonary disease, unspecified; Z21 Asymptomatic human immunodeficiency virus [HIV] infection status; K59.00 Constipation, unspecified; R07.0 Pain in throat; Z88.0 Allergy status to penicillin; Z88.2 Allergy status to sulfonamides
CPT/HCPCS: 36415; 80053; 80177; 81003; 82272; 85027; 86780; 87070; 93005; 93010; C9803; U0003